=== PATIENT | female | born 1990 | race Asian ===

== ENCOUNTER 2016-12-05 05:34 | Emergency (ER) | payer OTHER ==
[~2016-12-05] VITALS: Ht 165.1 cm; Wt 66.7 kg
[2016-12-05 05:39] VITALS: TEMP 98.9
[2016-12-05] MEDS ORDERED: PREDNISONE20 MG PO (05:43)
[2016-12-05 06:16] LABS: BASO % 0.2 % (0.0-2.0); EOS % 0.2 % (0-4.0); GRAN # 8.4 (1.4-6.5); GRAN % 78.4 % (42.2-75.2); HEMOGLOBIN 12.7 g/dl (12.5-16.0); LYMPH # 1.7 (1.2-3.4); LYMPH % 15.8 % (20.0-51.0); MEAN CELL VOLUME 99 fl (80.0-100.0); MEAN CORPUSCULAR HEMOGLOBIN 33 pg (27.0-31.0); MEAN CORPUSCULAR HGB CONC 33 g/dl (33.0-37.0); MEAN PLATELET VOLUME 10.5 fl (7.4-10.4); MONO # 0.6 (0.1-0.6); MONO % 5.1 % (1.7-9.3); PLATELET COUNT 236 K/mm3 (130-400); RED BLOOD COUNT 3.85 M/mm3 (4.10-5.30); WHITE BLOOD COUNT 10.7 K/mm3 (4.8-10.8)
[2016-12-05] MEDS ORDERED: ULTRAM 50MG TAB50 MG PO (06:41)
[2016-12-05 07:00] VITALS: BP 125/79; PULSE 80
== END 2016-12-05 06:59 | disposition home or self-care (01) ==
LOC: COL.ER 05:34
PROVIDERS: Family Medicine
DX: J03.80 Acute tonsillitis due to other specified organisms (principal)
CPT/HCPCS: J8540

== ENCOUNTER → 2018-06-22 | Outpatient (CLI) | payer OTHER ==
[~2018-06-22] MED LIST: PREDNISONE20 MG PO; ULTRAM 50MG TAB50 MG PO
== END ==
LOC: MC.RAD 08:42
DX: N63.20 Unspecified lump in the left breast, unspecified quadrant (principal); Z86.018 Personal history of other benign neoplasm

== ENCOUNTER → 2019-08-09 | Outpatient (CLI) | payer OTHER | LOC: MC.RAD 09:03 | DX: N63.21 Unspecified lump in the left breast, upper outer quadrant (principal); Z87.898 Personal history of other specified conditions ==